=== PATIENT | male | born 2000 | race Caucasian/White ===

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

== ENCOUNTER 2020-05-14 09:51 | Emergency (ER) | payer OTHER ==
[~2020-05-14] VITALS: Ht 165.1 cm; Wt 54.5 kg
[~2020-05-14 09:51] MED LIST changes: +OMEP-218; +OMEP1CAP73 PO; -OMEP20CA4 PO; +REGL10TA6 PO
[2020-05-14] MEDS ORDERED: ONDANSETRON 4MG/2ML VIAL IV ONE (10:15)
[2020-05-14] MEDS ORDERED: MORPHINE 4 MG/ML 1ML VIAL/SYRINGE (J2270) IV ONE (10:15)
[2020-05-14] MEDS ORDERED: NS 1,000 ML IV ONE (10:15)
[2020-05-14 10:40] LABS: BASO # 0.1 10^3/uL (0.0-0.2); BASO % 1.5 % (0.0-1.0); EOS # 0.1 10^3/uL (0.0-0.5); EOS % 2.7 % (0.0-3.0); HEMATOCRIT 43.8 % (42.0-52.0); HEMOGLOBIN 15.2 g/dl (13.5-17.5); LYMPH # 2.1 10^3/uL (1.5-5.0); LYMPH % 43.4 % (24.0-44.0); MEAN CORPUSCULAR HEMOGLOBIN 28.8 pg (27.0-33.0); MEAN CORPUSCULAR HGB CONC 34.7 g/dl (32.0-36.5); MONO # 0.5 10^3/uL (0.0-0.8); MONO % 10.1 % (0.0-5.0); NEUTROPHILS % 42.1 % (36.0-66.0); PLATELET COUNT, AUTOMATED 202 10^3/uL (150-450); RED BLOOD COUNT 5.28 10^6/uL (4.30-6.10); WHITE BLOOD COUNT 4.8 10^3/uL (4.0-10.0)
[2020-05-14 11:12] LABS: ALBUMIN 4.3 GM/DL (3.2-5.2); BILIRUBIN,DIRECT 0.3 MG/DL (0.0-0.2); BILIRUBIN,TOTAL 1.6 MG/DL (0.2-1.0); TOTAL PROTEIN 7.3 GM/DL (6.4-8.2)
[2020-05-14] MEDS ORDERED: ISOVUE-370 76% 100ML VIAL As Ordered ONE (11:25)
[2020-05-14] MEDS ORDERED: POTASSIUM CHLORIDE 10 MEQ SR TABLET PO ONE (11:45)
[2020-05-14 14:10] VITALS: BP 116/66
--- NOTE | 2020-05-31 10:42 | ECGEPIP ---
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
--- NOTE | 2020-06-13 09:55 | REP ---
GALLBLADDER ULTRASOUND: HISTORY: Right-sided abdominal pain with elevated bilirubin levels. TECHNIQUE: Transabdominal dubon scale ultrasound examination using curved array transducer. FINDINGS: The liver and visualized pancreas are normal in contour, size and echogenicity without focal hepatic or pancreatic lesion identified. The gallbladder is normal and without gallstones, wall thickening or pericholecystic fluid. No biliary duct dilatation is appreciated and the common bile duct measures 4 mm in diameter. The right kidney is normal in reniform shape without hydronephrosis and measures 9.3 x 4.5 x 3.8 cm. No ascites in the visualized right upper quadrant. IMPRESSION: Normal right upper quadrant and gallbladder ultrasound. MTDD
--- NOTE | 2020-06-13 09:56 | REP ---
CT OF THE ABDOMEN AND PELVIS WITH IV CONTRAST CLINICAL: Right lower quadrant pain. TECHNIQUE: Axial contrast-enhanced images from the lung bases to the pubic symphysis using 100 cc Isovue-370 intravenous contrast material with coronal and sagittal reformations. COMPARISON: Multiple examinations dating between 06/22/2019 and 12/02/2015. FINDINGS: Lung bases are clear. Visualized heart and pericardium normal. Liver, spleen, pancreas, gallbladder, bilateral adrenal glands, and kidneys are normal. The enteric system demonstrates element of at least partial malrotation with most of the small bowel on the right side of the abdomen and most of the large bowel on the left side of the abdomen. The terminal ileum, cecum, and appendix are identified in the midline/left mid abdomen and appear normal. The pelvis demonstrates normal bladder and age-appropriate prostate/seminal vesicles. No ascites. No free air. No adenopathy. Abdominal aorta without aneurysm or dissection. Musculoskeletal structures are intact. IMPRESSION: Cecum, terminal ileum, and appendix identified in the midline extending to the left mid abdomen with suggestions for partial bowel malrotation. The appendix is otherwise normal in appearance, and there is no evidence for appendicitis or acute pathology. MTDD
== END 2020-05-14 14:13 | disposition home or self-care (01) ==
LOC: EDBD 09:51 → M ED 09:51
DX: E80.6 Other disorders of bilirubin metabolism (principal); E87.6 Hypokalemia; R00.1 Bradycardia, unspecified; Z79.899 Other long term (current) drug therapy
CPT/HCPCS: 74177; 76705; 80047; 80076; 81001; 83690; 85025; 87040; 93005; 96361; 96374; 96375; 99284; J2270; J2405; Q9967

== ENCOUNTER → 2020-06-10 | Outpatient (REF) | payer OTHER | LOC: M LAB REF 16:42 | PROVIDERS: ATTEND Physician Assistant | DX: J02.9 Acute pharyngitis, unspecified (principal) ==

== ENCOUNTER 2021-04-17 13:45 | Emergency (ER) | payer OTHER ==
[~2021-04-17] VITALS: Ht 157.5 cm; Wt 56.7 kg
[~2021-04-17 13:45] MED LIST changes: +OMEP-173; -OMEP-218
[2021-04-17 13:46] VITALS: BP 139/79
== END 2021-04-17 18:30 | disposition home or self-care (01) ==
LOC: M ED 13:45
DX: S09.90XA Unspecified injury of head, initial encounter (principal); M54.2 Cervicalgia; W19.XXXA Unspecified fall, initial encounter; Y92.511 Restaurant or cafe as the place of occurrence of the external cause; Y93.89 Activity, other specified; Y99.0 Civilian activity done for income or pay

== ENCOUNTER 2021-09-02 08:02 | Inpatient (IN) | payer OTHER ==
[~2021-09-02] VITALS: Ht 152.4 cm; Wt 56.4 kg
[~2021-09-02 08:02] MED LIST changes: -OMEP-173; +OMEP-218
[2021-09-02 08:43] LABS: HEMATOCRIT 46.7 % (42.0-52.0); HEMOGLOBIN 15.4 g/dl (13.5-17.5); MEAN CORPUSCULAR HEMOGLOBIN 28.6 pg (27.0-33.0); MEAN CORPUSCULAR VOLUME 86.8 fl (80.0-96.0); PLATELET COUNT, AUTOMATED 228 10^3/uL (150-450); RED BLOOD COUNT 5.38 10^6/uL (4.30-6.10); WHITE BLOOD COUNT 5.4 10^3/uL (4.0-10.0)
[2021-09-02 09:20] LABS: RSV AMPLIFICATION NEGATIVE (NEGATIVE)
[2021-09-02 09:27] LABS: AMPHETAMINES LEVEL URINE NEGATIVE (NEGATIVE); BARBITURATES URINE NEGATIVE (NEGATIVE); BENZODIAZEPINES URINE NEGATIVE (NEGATIVE); CANNABINOIDS URINE POSITIVE (NEGATIVE); COCAINE METABOLITE URINE NEGATIVE (NEGATIVE); METHADONE URINE NEGATIVE (NEGATIVE); OPIATES URINE NEGATIVE (NEGATIVE); PHENCYCLIDINE URINE NEGATIVE (NEGATIVE)
[2021-09-02] MEDS ORDERED: hydrOXYzine 25 MG TAB PO ONE (09:35)
[2021-09-02 09:55] LABS: ACETAMINOPHEN LEVEL < 2.0 UG/ML (10.0-30.0); ALBUMIN 4.6 GM/DL (3.2-5.2); ALT/SGPT 23 U/L (12-78); BILIRUBIN,DIRECT 0.4 MG/DL (0.0-0.2); BILIRUBIN,TOTAL 1.5 MG/DL (0.2-1.0); BLOOD UREA NITROGEN 20 MG/DL (7-18); CALCIUM LEVEL 9.7 MG/DL (8.5-10.1); CARBON DIOXIDE LEVEL 29 MEQ/L (21-32); CHLORIDE LEVEL 104 MEQ/L (98-107); CREATININE FOR GFR 1.19 MG/DL (0.70-1.30); ETHYL ALCOHOL (ETHANOL) < 0.003 % (0.000-0.010); GLOMERULAR FILTRATION RATE > 60.0 (>60); GLUCOSE, FASTING 92 MG/DL (70-100); POTASSIUM SERUM 4.1 MEQ/L (3.5-5.1); SALICYLATE LEVEL < 1.7 MG/DL (5.0-30.0); SODIUM LEVEL 139 MEQ/L (136-145); TOTAL PROTEIN 7.8 GM/DL (6.4-8.2)
[2021-09-02] MEDS ORDERED: MAALOX 30 ML SUSP *UDC PO PRN (11:00)
[2021-09-02] MEDS ORDERED: traZODone 50 MG TAB PO PRN (11:00)
[2021-09-02] MEDS ORDERED: MOM 30ML SUSPENSION UDC PO PRN (11:00)
[2021-09-02] MEDS ORDERED: ACETAMINOPHEN TAB 650MG DOSE (2X325MG) PO PRN (11:00)
[2021-09-02] MEDS ORDERED: HOME MED LIST COMPLETE! XX SCH (11:25)
[2021-09-02 18:00] VITALS: BP 148/96
[2021-09-03 06:37] VITALS: BP 132/72
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
[2021-09-03] MEDS: hydrOXYzine 50 MG TAB PO PRN ×2 (08:58→20:17)
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
[2021-09-03] MEDS: FLUoxetine 20 MG CAP PO SCH (11:30)
[2021-09-03 18:59] VITALS: BP 122/68
[2021-09-03] MEDS: PRAZOSIN 1 MG CAP PO SCH (20:18)
[2021-09-04 06:44] VITALS: BP 115/62
[2021-09-04] MEDS: FLUoxetine 20 MG CAP PO SCH (09:49)
[2021-09-04 10:50] LABS: HEPATITIS B CORE ANTIBODY IGM NEGATIVE (NEGATIVE); HEPATITIS B SURFACE ANTIGEN NEGATIVE (NEGATIVE); HEPATITIS C VIRUS ABY INDEX 0.1 INDEX (<0.8); HIV SCREEN CENTAUR SOURCE NEGATIVE (NEGATIVE)
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
[2021-09-04] MEDS: busPIRone 5 MG TAB PO SCH ×3 (11:22→20:37)
[2021-09-04] MEDS: hydrOXYzine 50 MG TAB PO PRN ×2 (11:22→23:06)
--- NOTE | 2021-09-04 14:36 | IPNPDOC ---
Text Note Date of Service The patient was seen on 09/04/21. NOTE Ask to see patient regarding chest pain. Upon entering pt was laying in bed and complained of stabbing pain in the substernal region radiating over the left chest wall. Reports this is similar pain to what he experience time to time in the past. It is reproducible with palpation, and coughing. Denies nausea, vomiting, headache, and blurry vision. On exam s1/s2, palpation of the chest w all elicits tenderness and withdrawal. EKG showed no ST/T wave changes. Troponin trend is negative. Most likely MSK in nature and low suspicion for acs. VS,Fishbone, I+O VS, Fishbone, I+O Vital Signs Date Time Temp Pulse Resp B/P (MAP) Pulse Ox O2 Delivery O2 Flow Rate FiO2 09/04/21 06:44 97.6 56 16 115/62 (79) 98 Room Air OPAL BROWN M.D. Sep 04, 2021 14:36
[2021-09-04] MEDS ORDERED: IBUPROFEN 600MG TAB PO ONE (14:40)
[2021-09-04 16:35] VITALS: BP 125/74
[2021-09-04] MEDS: PRAZOSIN 1 MG CAP PO SCH (20:37)
[2021-09-05 06:20] VITALS: BP 116/72
[2021-09-05] MEDS: hydrOXYzine 50 MG TAB PO PRN ×2 (06:41→17:34)
[2021-09-05] MEDS: busPIRone 5 MG TAB PO SCH (09:18)
[2021-09-05] MEDS: FLUoxetine 20 MG CAP PO SCH (09:18)
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
[2021-09-05] MEDS: busPIRone 10 MG TAB PO SCH ×2 (15:20→20:59)
[2021-09-05 16:24] VITALS: BP 143/89
[2021-09-05] MEDS: PRAZOSIN 1 MG CAP PO SCH (20:59)
[2021-09-06 06:07] VITALS: BP 120/56
--- NOTE | 2021-09-06 07:16 | ECGEPIP ---
[facility] Test Date: 2021-09-04 Pat Name: JAGDISH CARMONA Department: Room: [place] [address] Gender: Male Journalist: ofelia : 2000 Requested By: OPAL Garcia Order Number: [id number] Reading MD: Fabiola Cunha Measurements Intervals [place] Rate: 60 P: 39 ND: 134 QRS: 75 QRSD: 92 T: 67 QT: 452 QTc: 452 Interpretive Statements Normal sinus rhythm SIMILAR TO 05/14/20 Electronically Signed on 09-06-2021 7:16:24 EST by Fabiola Cunha
[2021-09-06] MEDS: hydrOXYzine 50 MG TAB PO PRN ×2 (07:48→15:22)
[2021-09-06] MEDS: FLUoxetine 20 MG CAP PO SCH (08:41)
[2021-09-06] MEDS: busPIRone 10 MG TAB PO SCH ×3 (08:41→20:34)
[2021-09-06] MEDS ORDERED: traZODone 100 MG TAB PO PRN (09:00)
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
[2021-09-06 16:24] VITALS: BP 116/76
[2021-09-06 20:35] VITALS: BP 116/76
[2021-09-06] MEDS ORDERED: PRAZOSIN 1 MG CAP PO SCH (21:00)
[2021-09-07 07:11] VITALS: BP 102/61
[2021-09-07] MEDS: busPIRone 10 MG TAB PO SCH (09:18)
[2021-09-07] MEDS: FLUoxetine 20 MG CAP PO SCH (09:18)
[2021-09-07] MEDS ORDERED: HYDR50TA70 PO (10:15)
[2021-09-07] MEDS ORDERED: PRAZ1CAP PO (10:15)
[2021-09-07] MEDS ORDERED: PRAZ2CAP PO (10:15)
[2021-09-07] MEDS ORDERED: FLUO20CA22 PO (10:15)
[2021-09-07] MEDS ORDERED: BUSP10TA PO (10:15)
[2021-09-07] MEDS ORDERED: TRAZ-257 PO (10:16)
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
== END 2021-09-07 11:05 | disposition home or self-care (01) | DRG 755 ==
LOC: M ED 08:02 → M ED INP 10:59 → M PSY 11:40
PROVIDERS: ADMIT Student in an Organized Health Care Education/Training Program; ATTEND Student in an Organized Health Care Education/Training Program
DX: F43.11 Post-traumatic stress disorder, acute (principal); R45.850 Homicidal ideations; R45.851 Suicidal ideations; F12.10 Cannabis abuse, uncomplicated; F45.1 Undifferentiated somatoform disorder; F19.11 Other psychoactive substance abuse, in remission; R07.89 Other chest pain; Z91.52 Personal history of nonsuicidal self-harm; Z62.810 Personal history of physical and sexual abuse in childhood; Z79.899 Other long term (current) drug therapy; Z81.8 Family history of other mental and behavioral disorders

== ENCOUNTER → 2021-10-19 | Outpatient (REF) | payer OTHER ==
[~2021-10-19] MED LIST changes: +BUSP10TA PO; +FLUO20CA22 PO; +HYDR50TA70 PO; +OMEP-173; -OMEP-218; +PRAZ1CAP PO; +PRAZ2CAP PO; +TRAZ-257 PO
[2021-10-19 17:50] LABS: GC DNA AMPLIFICATION NEGATIVE (NEGATIVE)
== END ==
LOC: M SFHCADAM 14:07
PROVIDERS: ATTEND Physician Assistant Medical
DX: Z11.3 Encounter for screening for infections with a predominantly sexual mode of transmission (principal)

== ENCOUNTER 2021-11-19 11:51 | Emergency (ER) | payer OTHER, MEDICAID ==
[~2021-11-19] VITALS: Ht 157.5 cm; Wt 58.6 kg
[2021-11-19] MEDS ORDERED: FLUO40CA (12:01)
[2021-11-19] MEDS ORDERED: DIAZ5TAB (12:01)
[2021-11-19] MEDS ORDERED: DOXE10CA (12:01)
[2021-11-19] MEDS ORDERED: ACET-683 PO (12:01)
[2021-11-19] MEDS ORDERED: RISP-7 (12:01)
[2021-11-19 14:29] VITALS: BP 128/82
== END 2021-11-19 14:31 | disposition home or self-care (01) ==
LOC: M ED 11:51
DX: M26.629 Arthralgia of temporomandibular joint, unspecified side (principal); K58.1 Irritable bowel syndrome with constipation; F17.210 Nicotine dependence, cigarettes, uncomplicated; Z79.899 Other long term (current) drug therapy

== ENCOUNTER 2021-11-28 19:52 | Emergency (ER) | payer OTHER, MEDICAID ==
[~2021-11-28] VITALS: Ht 160 cm; Wt 56.8 kg
[~2021-11-28 19:52] MED LIST changes: +ACET-683 PO; +DIAZ5TAB; +DOXE10CA; +FLUO40CA; +RISP-7
[2021-11-28 20:41] LABS: HEMATOCRIT 44.1 % (42.0-52.0); HEMOGLOBIN 14.5 g/dl (13.5-17.5); MEAN CORPUSCULAR HEMOGLOBIN 27.5 pg (27.0-33.0); MEAN CORPUSCULAR HGB CONC 32.9 g/dl (32.0-36.5); MEAN CORPUSCULAR VOLUME 83.5 fl (80.0-96.0); PLATELET COUNT, AUTOMATED 282 10^3/uL (150-450); RED BLOOD COUNT 5.28 10^6/uL (4.30-6.10); WHITE BLOOD COUNT 9.1 10^3/uL (4.0-10.0)
[2021-11-28 20:51] LABS: AMPHETAMINES LEVEL URINE POSITIVE (NEGATIVE); BARBITURATES URINE NEGATIVE (NEGATIVE); BENZODIAZEPINES URINE POSITIVE (NEGATIVE); CANNABINOIDS URINE POSITIVE (NEGATIVE); COCAINE METABOLITE URINE NEGATIVE (NEGATIVE); METHADONE URINE NEGATIVE (NEGATIVE); OPIATES URINE NEGATIVE (NEGATIVE); PHENCYCLIDINE URINE NEGATIVE (NEGATIVE)
[2021-11-28 21:23] LABS: ACETAMINOPHEN LEVEL < 2.0 UG/ML (10.0-30.0); ALBUMIN 4.6 GM/DL (3.2-5.2); ALT/SGPT 24 U/L (12-78); BILIRUBIN,DIRECT 0.3 MG/DL (0.0-0.2); BILIRUBIN,TOTAL 1.5 MG/DL (0.2-1.0); BLOOD UREA NITROGEN 18 MG/DL (7-18); CALCIUM LEVEL 9.5 MG/DL (8.5-10.1); CARBON DIOXIDE LEVEL 31 MEQ/L (21-32); CHLORIDE LEVEL 105 MEQ/L (98-107); CREATININE FOR GFR 1.26 MG/DL (0.70-1.30); ETHYL ALCOHOL (ETHANOL) < 0.003 % (0.000-0.010); GLOMERULAR FILTRATION RATE > 60.0 (>60); GLUCOSE, FASTING 85 MG/DL (70-100); POTASSIUM SERUM 4.2 MEQ/L (3.5-5.1); SALICYLATE LEVEL < 1.7 MG/DL (5.0-30.0); SODIUM LEVEL 139 MEQ/L (136-145); TOTAL PROTEIN 7.4 GM/DL (6.4-8.2)
[2021-11-28 22:04] LABS: RSV AMPLIFICATION NEGATIVE (NEGATIVE)
[2021-11-29] MEDS ORDERED: DOXE10CA PO (00:06)
[2021-11-29] MEDS ORDERED: FLUO40CA PO (00:06)
[2021-11-29] MEDS ORDERED: PRAZ2CAP PO (00:06)
[2021-11-29] MEDS ORDERED: ADDE10CA3 PO (00:06)
[2021-11-29] MEDS ORDERED: HYDR50TA70 PO (00:06)
[2021-11-29] MEDS ORDERED: RISP-7 PO (00:06)
[2021-11-29] MEDS ORDERED: DIAZ5TAB PO (00:06)
[2021-11-29] MEDS ORDERED: HOME MED LIST COMPLETE! XX SCH (00:10)
[2021-11-29 01:49] VITALS: BP 106/68
== END 2021-11-29 02:00 ==
LOC: M ED 19:52
DX: R45.851 Suicidal ideations (principal); F32.A Depression, unspecified; Z62.810 Personal history of physical and sexual abuse in childhood; R45.850 Homicidal ideations; F43.10 Post-traumatic stress disorder, unspecified; F41.9 Anxiety disorder, unspecified; J45.909 Unspecified asthma, uncomplicated; Z81.8 Family history of other mental and behavioral disorders; Z79.899 Other long term (current) drug therapy

== ENCOUNTER 2022-01-31 09:38 | Emergency (ER) | payer MEDICAID, OTHER ==
[~2022-01-31] VITALS: Ht 157.5 cm; Wt 60.4 kg
[~2022-01-31 09:38] MED LIST changes: +ADDE10CA3 PO; +DIAZ5TAB PO; +DOXE10CA PO; +FLUO40CA PO; +RISP-7 PO
[2022-01-31] MEDS ORDERED: BUPR150T12 (09:46)
[2022-01-31] MEDS ORDERED: ERGO500029 (09:46)
[2022-01-31] MEDS ORDERED: MIRT1TAB (09:46)
[2022-01-31 11:43] VITALS: BP 124/78
== END 2022-01-31 11:45 | disposition home or self-care (01) ==
LOC: M ED 09:38
DX: M25.462 Effusion, left knee (principal); W10.8XXA Fall (on) (from) other stairs and steps, initial encounter; Y92.511 Restaurant or cafe as the place of occurrence of the external cause

== ENCOUNTER → 2022-03-06 | Outpatient (CLI) | payer OTHER ==
[~2022-03-06] MED LIST changes: +BUPR150T12; +ERGO500029; +MIRT1TAB
== END ==
LOC: M PLAIMG 14:50
PROVIDERS: ATTEND Orthopaedic Surgery Adult Reconstructive Orthopaedic Surgery
DX: R93.7 Abnormal findings on diagnostic imaging of other parts of musculoskeletal system (principal); M23.92 Unspecified internal derangement of left knee

== ENCOUNTER → 2022-03-18 | Outpatient (CLI) | payer OTHER ==
[~2022-03-18] MED LIST changes: +IBUP200C29 PO
== END ==
LOC: M LABSMTC 09:32
PROVIDERS: ATTEND Anesthesiology
DX: Z01.818 Encounter for other preprocedural examination (principal); Z11.52 Encounter for screening for COVID-19

== ENCOUNTER 2022-03-20 08:13 | Day surgery (SDC) | payer OTHER ==
[~2022-03-20] VITALS: Ht 157.5 cm; Wt 58.9 kg
[~2022-03-20 08:13] MED LIST changes: +ACETAMINOPHEN 500 MG TAB PO ONE; +CelecoXIB 400 MG CAP PO ONE; +GABAPENTIN 300 MG CAP PO ONE; +ONDANSETRON 4MG 2ML VIAL IV ONE
[2022-03-20] MEDS ORDERED: LR 1,000 ML IV SCH ×3 (08:55→12:55)
[2022-03-20] MEDS ORDERED: propofoL 200 MG/20 ML VIAL As Ordered ONE (09:15)
[2022-03-20] MEDS ORDERED: LIDOCAINE 2% INJ 100 MG/5 ML SYRINGE As Ordered ONE (09:16)
[2022-03-20] MEDS ORDERED: dexameTHASONE 4 MG/ML 1ML VIAL (J1100 PER 1MG) As Ordered ONE (09:16)
[2022-03-20] MEDS ORDERED: ONDANSETRON 4MG 2ML VIAL As Ordered ONE (09:16)
[2022-03-20] MEDS ORDERED: BUPIVACAINE/EPIN 0.5% 30 ML VIAL As Ordered ONE (10:01)
[2022-03-20] MEDS ORDERED: fentaNYL 100 MCG/2 ML INJECTION As Ordered ONE ×2 (10:20→11:59)
[2022-03-20] MEDS ORDERED: MIDAZOLAM INJ 2MG/2ML VIAL (J2250 PER 1MG) As Ordered ONE (10:20)
[2022-03-20] MEDS ORDERED: HYDROMORPHONE HCL 0.5 MG/ 0.5 ML SYRINGE (J1170 PER 1) IV PRN (12:35)
[2022-03-20] MEDS ORDERED: oxyCODONE 5MG TAB PO PRN (12:35)
[2022-03-20] MEDS ORDERED: ONDANSETRON 4MG 2ML VIAL IV PRN (12:35)
[2022-03-20] MEDS: fentaNYL 100 MCG/2 ML INJECTION IV PRN ×2 (13:39→13:45)
[2022-03-20 14:15] VITALS: BP 109/69
== END 2022-03-20 14:19 | disposition home or self-care (01) ==
LOC: M SDC 08:13
PROVIDERS: ATTEND Orthopaedic Surgery Adult Reconstructive Orthopaedic Surgery
DX: S83.212A Bucket-handle tear of medial meniscus, current injury, left knee, initial encounter (principal); X58.XXXA Exposure to other specified factors, initial encounter
CPT/HCPCS: 29881; 97116; 97161; C1713; J1100; J2250; J2405; J3010

== ENCOUNTER 2022-08-30 22:46 | Emergency (ER) | payer OTHER ==
[~2022-08-30] VITALS: Ht 157.5 cm; Wt 54.5 kg
[~2022-08-30 22:46] MED LIST changes: -ACETAMINOPHEN 500 MG TAB PO ONE; +ALBU6.7H6 INH; -CelecoXIB 400 MG CAP PO ONE; -GABAPENTIN 300 MG CAP PO ONE; -ONDANSETRON 4MG 2ML VIAL IV ONE; -PROV108A INH
[2022-08-30 22:48] VITALS: BP 132/85
== END 2022-08-31 01:42 | disposition left against medical advice (07) ==
LOC: M ED 22:46
DX: Z53.21 Procedure and treatment not carried out due to patient leaving prior to being seen by health care provider (principal)

== ENCOUNTER 2022-08-31 19:25 | Emergency (ER) | payer OTHER ==
[~2022-08-31] VITALS: Ht 157.5 cm; Wt 54.5 kg
[2022-08-31 19:26] VITALS: BP 136/73
== END 2022-09-01 00:15 | disposition left against medical advice (07) ==
LOC: M ED 19:25
DX: Z53.21 Procedure and treatment not carried out due to patient leaving prior to being seen by health care provider (principal)

== ENCOUNTER → 2024-09-28 | Outpatient (CLI) | payer OTHER ==
[~2024-09-28] MED LIST changes: +FLUO-365 PO; -FLUO20CA22 PO; -RISP-7; -RISP-7 PO; +RISP0.5T82; +RISP0.5T82 PO
== END ==
LOC: M RAD 11:02
PROVIDERS: ATTEND Surgery
DX: K40.90 Unilateral inguinal hernia, without obstruction or gangrene, not specified as recurrent (principal)